=== PATIENT | female | born 1945 | race Caucasian/White ===

== ENCOUNTER → 2016-06-10 | Outpatient (CLI) | payer OTHER ==
[~2016-06-10] VITALS: Ht 154.9 cm; Wt 72.6 kg
[~2016-06-10] MED LIST: COZAAR100 MG PO; ESSENTIAL WOMA1 EAC1 PO; IMURAN50 MG PO; IRON18 MG PO; LEXAPRO10 MG PO; MOBIC15 MG PO; NORCO 5/3251 TABLET PO; RED YEAST RICE600 MG PO; VITAMIN D-32000 UNI2 PO
== END | disposition home or self-care (01) ==
LOC: AMB 09:00
DX: R13.10 Dysphagia, unspecified (principal); K44.9 Diaphragmatic hernia without obstruction or gangrene; K29.70 Gastritis, unspecified, without bleeding; K22.8 Other specified diseases of esophagus; K75.4 Autoimmune hepatitis
CPT/HCPCS: 88305; 88342 TC; J2250; J2405; J3010

== ENCOUNTER 2017-10-15 21:36 | Emergency (ER) | payer OTHER ==
[2017-10-15 22:03] LABS: BASOPHIL (%) 0.3 % (0-1); EOSINOPHIL (%) 0.8 % (0-5); EOSINOPHIL COUNT 0.1 K/uL (0-0.3); HEMATOCRIT 42.4 % (36.0-46.0); HEMOGLOBIN 13.8 G/DL (11.9-15.5); LYMPHOCYTE (%) 26.3 % (15-42); LYMPHOCYTE COUNT 2.3 K/uL (1.0-2.8); MCH 29.6 PG (29.0-34.0); MCHC 32.5 G/DL (30.0-36.0); MCV 90.8 FL (83-99); MONOCYTE (%) 10.5 % (3-12); MONOCYTE COUNT 0.9 K/uL (0-0.8); NEUTROPHIL (%) 61.1 % (45-76); NEUTROPHIL COUNT 5.3 K/uL (1.8-6.4); PLATELET COUNT 187 K/uL (156-360); RBC DIS.WIDTH-CV 14.5 % (11.8-14.6); RED BLOOD COUNT 4.67 M/uL (3.80-5.20); WHITE BLOOD COUNT 8.7 K/uL (4.1-10.2)
[2017-10-15 22:20] LABS: AMYLASE 51 IU/L (1-118); CHLORIDE 106 mEq/L (99-109); POTASSIUM 4.6 mEq/L (3.7-5.4); SODIUM 138 mEq/L (136-147)
[2017-10-15 22:21] LABS: GLUCOSE 132 mg/dL (70-99)
[2017-10-15 22:25] LABS: CREATININE 0.7 mg/dL (0.6-1.3); GFR ESTIMATE (CALCULATED) > 59 mL/min/; SERUM ETHYL ALCOHOL < 10 mg/dL
[2017-10-15 22:26] LABS: UREA NITROGEN (BUN) 22 mg/dL (9-23)
[2017-10-15 22:28] LABS: LIPASE 41 U/L (1.0-51.0)
== END 2017-10-16 03:41 | disposition short-term general hospital (02) ==
LOC: TRA 21:36
PROVIDERS: Emergency Medicine
PROC: 0HQLXZZ Repair Left Lower Leg Skin, External Approach (ICD-10-PCS; principal; 2017-10-15)
PROC: 0HQDXZZ Repair Right Lower Arm Skin, External Approach (ICD-10-PCS; principal; 2017-10-15)
DX: S12.120A Other displaced dens fracture, initial encounter for closed fracture (principal); S92.002A Unspecified fracture of left calcaneus, initial encounter for closed fracture; S82.55XA Nondisplaced fracture of medial malleolus of left tibia, initial encounter for closed fracture; S92.522A Displaced fracture of middle phalanx of left lesser toe(s), initial encounter for closed fracture; S51.811A Laceration without foreign body of right forearm, initial encounter; S81.812A Laceration without foreign body, left lower leg, initial encounter; V49.50XA Passenger injured in collision with unspecified motor vehicles in traffic accident, initial encounter; Y92.410 Unspecified street and highway as the place of occurrence of the external cause; I10 Essential (primary) hypertension
CPT/HCPCS: 70450; 71045; 71260; 72125; 72129; 72132; 73100; 73120; 73590; 73630; 74177; 80048; 81003; 82150; 83690; 85025; 86850; 86900; 86901; 99281; 99285; G0480; J1170; J2270; J2405